=== PATIENT | female | born 1940 | race Caucasian/White ===

== ENCOUNTER 2020-02-02 15:39 | Outpatient (CLI) | payer MEDICARE, OTHER | END 2020-02-02 15:40 | disposition home or self-care (01) | LOC: COV 15:39 | PROVIDERS: ATTEND Ophthalmology | DX: Z01.812 Encounter for preprocedural laboratory examination (principal); H25.811 Combined forms of age-related cataract, right eye; Z20.828 Contact with and (suspected) exposure to other viral communicable diseases ==

== ENCOUNTER 2020-02-08 07:29 | Day surgery (SDC) | payer MEDICARE, OTHER ==
[~2020-02-08 07:29] MED LIST: KETOROLAC 0.45% OPHTH DROPS ONE; PHENYLEPHRINE 2.5% OPHTH 2 ML DROPS ONE; PROPARACAINE 0.5% OPHTH DROPS 15 ML ONE
[2020-02-08] MEDS ORDERED: LACTATED RINGERS 500 ML IV ONE ×2 (07:49→08:54)
--- NOTE | 2020-02-08 08:03 | ANESTHESIA ---
Pre-Anesthesia VS, & Labs - Diagnosis right eye senile combined cataract - Procedure right eye cataract extraction with IOL implant Vital Signs: Temp Pulse Resp BP Pulse Ox 36.5 C 71 18 155/61 H 96 02/08/20 07:40 02/08/20 07:40 02/08/20 07:40 02/08/20 07:40 02/08/20 07:40 Height: 5 ft Weight (kg): 77.6 kg Body Mass Index: 33.4 BMI Classification: Obese - NPO >8 hours - Is Patient ?: No - Lab Results Current Lab Results: Laboratory Tests 02/08/20 07:46: POC Whole Bld Glucose 96 Home Medications and Allergies Home Medications: Ambulatory Orders Cholecalciferol [Vitamin D3] 5,000 unit PO DAILY 02/07/20 Albuterol Sulfate [Proair Hfa Inhaler] 1 - 2 puffs INH Q4H PRN 01/11/18 Atorvastatin Calcium 40 mg PO DAILY 01/11/18 Fluticasone/Salmeterol [Advair 500-50 Diskus] 1 each IH DAILY 01/11/18 Levothyroxine Sodium 75 mcg PO DAILY 01/11/18 Lisinopril/Hydrochlorothiazide [Lisinopril-Hctz 20-25 mg Tab] 1 each PO DAILY 01/11/18 Metformin HCl 500 mg PO BID 01/11/18 Cholecalciferol [Vitamin D3] 5,000 unit PO DAILY 02/07/20 Allergies/Adverse Reactions: Allergies Allergy/AdvReac Type Severity Reaction Status Date / Time goldenrod Allergy Respiratory Uncoded 02/07/20 14:50 Anes History & Medical History - Anesthetic History Anesthesia Complications: reports: No previous complications - Medical History Cardiovascular: reports: Hypertension, High cholesterol Pulmonary: reports: Asthma (well controlled) Gastrointestinal: reports: Ulcers Urinary: reports: Incontinence, Nocturia, Frequency Neuro: reports: None Musculoskeletal: reports: None Endocrine/Autoimmune: reports: Type 2 diabetes (well controlled), HyPOthyroidism Blood Disorders: reports: None Skin: reports: Rosacea Smoking Status: Former smoker (Quit 30 years ago.) Psychosocial: reports: No issues indicated History of Cancer?: No - Surgical History General: Cholecystectomy, Appendectomy Eyes Ears Nose Throat (EENT): Tonsil/Adenoidectomy Exam General: Alert, Oriented x3, Cooperative, No acute distress Dental: Dentures full Upper, Partials Lower Mouth Openin Fingerbreadth Neck Mobility: Normal Mallampati classification: II Thyromental Distance: 4-6 cm Mental/Cognitive Status: Alert/Oriented X3, Normal for patient Plan Anesthesia Type: MAC Consent for Procedure(s) Verified and Reviewed: Yes Code Status: Attempt Resuscitation ASA classification: 2-Mild systemic disease Is this case an emergency?: No
[2020-02-08] MEDS ORDERED: MIDAZOLAM 2 MG/2 ML VIAL IVP ONE (08:30)
[2020-02-08] MEDS ORDERED: BRIMONIDINE 0.2% OPHTH DROPS 5 ML OPTH ONE (08:42)
[2020-02-08] MEDS ORDERED: EPINEPHrine 1 MG/ML AMP IR ONE (08:43)
[2020-02-08] MEDS ORDERED: TIMOLOL 0.5% OPHTH DROPS OPTH ONE (08:43)
[2020-02-08] MEDS ORDERED: CHONDR SULF/HYALURONATE SYRINGE IO ONE (08:43)
[2020-02-08] MEDS ORDERED: PROPARACAINE 0.5% OPHTH DROPS 15 ML EACHEYE ONE (08:44)
[2020-02-08] MEDS ORDERED: BSS/LIDOCAINE/EPINEPHRINE 1 ML SYRINGE IO ONE (08:44)
[2020-02-08] MEDS ORDERED: TRIAMCIN/MOXIFLOX OPHTHALMIC 0.6 ML VIAL IO ONE ×2 (08:44→13:56)
[2020-02-08] MEDS ORDERED: VANCOMYCIN OPHTHALMI 8MG/0.8ML 8 MG/0.8 ML SYRINGE IO ONE ×2 (08:45→13:56)
--- NOTE | 2020-02-08 09:03 | ANESTHESIA POST OP EVALUATION ---
Anesthesia Post Eval - Post Anesthesia Eval Vitals: Last Vital Signs Temp 36.5 C 02/08/20 07:40 Pulse 71 02/08/20 07:40 Resp 18 02/08/20 07:40 BP 155/61 H 02/08/20 07:40 Pulse Ox 96 02/08/20 07:40 CV Function Including HR & BP: positive: Stable Pain Control: positive: Satisfactory Nausea & Vomiting: positive: Negative Mental Status: positive: Baseline Respiratory Status: Airway Patent Hydration Status: Satisfactory Anesthesia Complications: positive: None
[2020-02-08 09:11] VITALS: BP 130/55
--- NOTE | 2020-02-08 12:08 | OPERATIVE REPORT ---
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 This was her first cataract surgery. 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 This was her first cataract surgery. PROCEDURE: Phacoemulsification with posterior chamber intraocular lens implant, right eye. SURGEON: Saeg Ponce MD ANESTHESIA: Monitored anesthesia care. COMPLICATIONS: None. 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 Best corrected visual acuity was 20/20, with glare to hand motion vision in the right eye. Indications for surgery are overall decrease in vision, difficulty reading, difficulty driving in low light or at night, difficulty driving at night because of headlights from other vehicles, and difficulty with glare or bright lights in any situation. She was consented at length concerning risks and benefits of cataract surgery, after which she expressed a desire to proceed with surgery. OPERATIVE PROCEDURE: The patient was taken to OR #3 and placed under monitored anesthesia care. A surgical timeout was conducted confirming correct patient, correct procedure, and correct surgical site. She was given topical anesthesia, and prepped and draped in the usual sterile fashion. The eye was entered at the 12, and 9 o'clock positions. Intracameral Shugarcaine was injected into the anterior chamber, followed by Viscoat. Because of the small pupil from pseudoexfoliation, a Malyugin ring was injected into the anterior chamber and engaged the pupil at 4 points to dilate the pupil. A continuous-tear curvilinear capsulorrhexis was performed. Nucleus was hydrodissected and phacoemulsified. The cortex was evacuated using automated infusion and aspiration. Provisc was injected in the capsular bag, and a 23.5 diopter intraocular lens inserted in the bag. The Malyugin ring was then disengaged from the pupillary margin and removed from the anterior chamber. Infusion and aspiration was used to evacuate the viscoelastic materials. The eye was inflated to physiologic pressure using balanced salt solution and found to be watertight. Approximately 0.25 mL of a mixture of triamcinolone and moxifloxacin was injected transsclerally into the vitreous in the inferotemporal quadrant. An additional 0.55 mL of a mixture of triamcinolone, moxifloxacin, and vancomycin was injected subconjunctivally in the superior quadrant for infection and inflammation prophylaxis. Wound integrity was checked with Weck- Mary sponges. Patient was taken from the Operating Room in good condition and given postoperative instructions. TD: 02/08/2020 09:08 WILIAN
[2020-02-08] MEDS ORDERED: BRIMONIDINE 0.2% OPHTH DROPS 5 ML ONE (13:56)
[2020-02-08] MEDS ORDERED: TIMOLOL 0.5% OPHTH DROPS ONE (13:56)
[2020-02-08] MEDS ORDERED: BSS/LIDOCAINE/EPINEPHRINE 1 ML SYRINGE ONE (13:56)
[2020-02-08] MEDS ORDERED: EPINEPHrine 1 MG/ML AMP ONE (13:59)
== END 2020-02-08 07:30 | disposition home or self-care (01) ==
LOC: SDS 07:29
PROVIDERS: ATTEND Ophthalmology
DX: E11.36 Type 2 diabetes mellitus with diabetic cataract (principal); H25.811 Combined forms of age-related cataract, right eye; Z79.84 Long term (current) use of oral hypoglycemic drugs; J45.909 Unspecified asthma, uncomplicated; I10 Essential (primary) hypertension; E03.9 Hypothyroidism, unspecified; Z87.891 Personal history of nicotine dependence; E66.9 Obesity, unspecified; Z68.33 Body mass index [BMI] 33.0-33.9, adult
CPT/HCPCS: 66982; A9270; J3490; J7120; V2632

== ENCOUNTER 2020-03-15 13:53 | Outpatient (CLI) | payer MEDICARE, OTHER | END 2020-03-15 13:54 | disposition home or self-care (01) | LOC: COV 13:53 | PROVIDERS: ATTEND Ophthalmology | DX: Z01.812 Encounter for preprocedural laboratory examination (principal); H25.812 Combined forms of age-related cataract, left eye; E11.9 Type 2 diabetes mellitus without complications; Z20.828 Contact with and (suspected) exposure to other viral communicable diseases ==

== ENCOUNTER 2020-03-21 06:31 | Day surgery (SDC) | payer MEDICARE, OTHER ==
[2020-03-21] MEDS ORDERED: LACTATED RINGERS 500 ML IV ONE (06:33)
[2020-03-21] MEDS ORDERED: CYCLOPENTOLATE 2% OPHTH DROPS 2 ML LEFTEYE ONE (07:00)
[2020-03-21] MEDS ORDERED: EPINEPHrine 1 MG/ML AMP ONE (07:06)
[2020-03-21] MEDS ORDERED: TRIAMCIN/MOXIFLOX OPHTHALMIC 0.6 ML VIAL IO ONE ×2 (07:06→07:31)
[2020-03-21] MEDS ORDERED: TIMOLOL 0.5% OPHTH DROPS ONE (07:07)
[2020-03-21] MEDS ORDERED: BRIMONIDINE 0.2% OPHTH DROPS 5 ML ONE (07:07)
[2020-03-21] MEDS ORDERED: BSS/LIDOCAINE/EPINEPHRINE 1 ML SYRINGE ONE (07:08)
[2020-03-21] MEDS ORDERED: VANCOMYCIN OPHTHALMI 8MG/0.8ML 8 MG/0.8 ML SYRINGE IO ONE ×2 (07:08→07:32)
[2020-03-21] MEDS ORDERED: MIDAZOLAM 2 MG/2 ML VIAL ONE (07:12)
[2020-03-21] MEDS ORDERED: fentaNYL 100 MCG/2 ML VIAL ONE (07:12)
--- NOTE | 2020-03-21 07:22 | ANESTHESIA ---
Pre-Anesthesia VS, & Labs - Diagnosis Left Cataract - Procedure Left IOL Vital Signs: Temp Pulse Resp BP Pulse Ox 36.1 C L 66 12 182/75 H 98 03/21/20 06:33 03/21/20 06:33 03/21/20 06:33 03/21/20 06:33 03/21/20 06:33 Height: 5 ft 2 in Weight (kg): 77.7 kg Body Mass Index: 31.3 BMI Classification: Obese - NPO >8 hours - Is Patient ?: No - Lab Results Current Lab Results: Laboratory Tests 03/21/20 06:54: POC Whole Bld Glucose 106 H Home Medications and Allergies Albuterol Sulfate [Proair Hfa Inhaler] 1 - 2 puffs INH Q4H PRN 01/11/18 Atorvastatin Calcium 40 mg PO DAILY 01/11/18 Fluticasone/Salmeterol [Advair 500-50 Diskus] 1 each IH DAILY 01/11/18 Levothyroxine Sodium 75 mcg PO DAILY 01/11/18 Lisinopril/Hydrochlorothiazide [Lisinopril-Hctz 20-25 mg Tab] 1 each PO DAILY 01/11/18 Metformin HCl 500 mg PO BID 01/11/18 Cholecalciferol [Vitamin D3] 5,000 unit PO DAILY 02/07/20 Allergies/Adverse Reactions: Allergies Allergy/AdvReac Type Severity Reaction Status Date / Time goldenrod Allergy Respiratory Uncoded 02/07/20 14:50 Anes History & Medical History - Anesthetic History Anesthesia Complications: reports: No previous complications Family history of Anesthesia Complications: Denies Family history of Malignant Hyperthermia: Denies - Medical History Cardiovascular: reports: Hypertension, High cholesterol Pulmonary: reports: Asthma (Took inhaler,says breathing is good) Gastrointestinal: reports: Cholelithiasis Urinary: reports: Incontinence Neuro: reports: None Musculoskeletal: reports: None Endocrine/Autoimmune: reports: Type 2 diabetes, HyPOthyroidism Blood Disorders: reports: None Skin: reports: Rosacea Smoking Status: Former smoker (Quit 30 years ago.) - Surgical History General: Cholecystectomy, Colonoscopy Eyes Ears Nose Throat (EENT): Cataracts Exam General: Alert, Oriented x3, Cooperative, No acute distress Dental: WNL Mouth Openin Fingerbreadth Neck Mobility: Reduced Mallampati classification: II Thyromental Distance: 4-6 cm Respiratory: Lungs clear Cardiovascular: Regular rate Plan Anesthesia Type: MAC Consent for Procedure(s) Verified and Reviewed: Yes Code Status: Attempt Resuscitation ASA classification: 2-Mild systemic disease Is this case an emergency?: No (Discussed anesthetic, consent signed)
[2020-03-21] MEDS ORDERED: BRIMONIDINE 0.2% OPHTH DROPS 5 ML OPTH ONE (07:28)
[2020-03-21] MEDS ORDERED: PROPARACAINE 0.5% OPHTH DROPS 15 ML EACHEYE ONE (07:29)
[2020-03-21] MEDS ORDERED: EPINEPHrine 1 MG/ML AMP IR ONE (07:29)
[2020-03-21] MEDS ORDERED: CHONDR SULF/HYALURONATE SYRINGE IO ONE (07:29)
[2020-03-21] MEDS ORDERED: TIMOLOL 0.5% OPHTH DROPS OPTH ONE (07:29)
[2020-03-21] MEDS ORDERED: BSS/LIDOCAINE/EPINEPHRINE 1 ML SYRINGE IO ONE (07:30)
--- NOTE | 2020-03-21 08:49 | ANESTHESIA POST OP EVALUATION ---
Anesthesia Post Eval - Post Anesthesia Eval Vitals: Last Vital Signs Temp 36.1 C L 03/21/20 06:33 Pulse 66 03/21/20 06:33 Resp 12 03/21/20 06:33 BP 182/75 H 03/21/20 06:33 Pulse Ox 98 03/21/20 06:33 CV Function Including HR & BP: positive: Stable Pain Control: positive: Satisfactory Nausea & Vomiting: positive: Negative Mental Status: positive: Baseline Respiratory Status: Airway Patent Hydration Status: Satisfactory Anesthesia Complications: positive: None
--- NOTE | 2020-03-21 09:06 | OPERATIVE REPORT ---
DATE OF SERVICE: 03/21/2020 Physician: Sage Ponce MD PREOPERATIVE DIAGNOSIS: Visually significant cataract, left eye. Cataract surgery was performed on the right eye on 02/08/2020. POSTOPERATIVE DIAGNOSIS: Visually significant cataract, left eye. Cataract surgery was performed on the right eye on 02/08/2020. PROCEDURE: Phacoemulsification with posterior chamber intraocular lens implant, left eye. SURGEON: Sage Ponce MD ANESTHESIA: Monitored anesthesia care. COMPLICATIONS: None. OPERATIVE INDICATIONS: This is a 79-year-old woman with progressive vision loss in the left eye due to 3-4+ nuclear sclerotic cataract and also 2+ pseudoexfoliation cataract that was noted during surge ry, but apparently had not been noted prior to surgery. However, the right eye had pseudoexfoliation cataract. Best corrected visual acuity was 20/20, with glare to 2500 in the left eye. Indications for surgery are difficulty reading, difficulty driving in low light or at night, difficulty driving a t night because of headlights from other vehicles, and difficulty with glare or bright lights in any situation. She was consented at length concerning risks and benefits of cataract surgery, after whic h she expressed a desire to proceed with surgery. OPERATIVE PROCEDURE: The patient was taken to OR #3 and placed under monitored anesthesia care. A s urgical timeout was conducted confirming correct patient, correct procedure, and correct surgical sit e. She was given topical anesthesia, and prepped and draped in the usual sterile fashion. The eye w as entered at the 6 and 3 o'clock positions. Intracameral Shugarcaine was injected into the anterior chamber, followed by Viscoat. A continuous-tear curvilinear capsulorrhexis was performed. The nucl eus was hydrodissected and phacoemulsified. The cortex was evacuated using automated infusion and as piration. Provisc was injected in the capsular bag, and a 24.0 diopter intraocular lens was inserted into the bag. Infusion and aspiration was used to evacuate the viscoelastic materials. The eye was inflated to physiologic pressure using balanced salt solution and found to be watertight. Approxima tely 0.25 mL of a mixture of triamcinolone and moxifloxacin was injected transsclerally into the vitr eous in the inferotemporal quadrant. An additional 0.55 mL of a mixture of triamcinolone, moxifloxac in, and vancomycin was injected subconjunctivally in the superior quadrant for infection and inflamma tion prophylaxis. Wound integrity was checked with Weck-Mary sponges. Patient was taken from the ope rating room in good condition and given postoperative instructions. TD: 03/21/2020 07:54
[2020-03-21 09:44] VITALS: BP 141/51
== END 2020-03-21 06:32 | disposition home or self-care (01) ==
LOC: SDS 06:31
PROVIDERS: ATTEND Ophthalmology
DX: E11.36 Type 2 diabetes mellitus with diabetic cataract (principal); H25.812 Combined forms of age-related cataract, left eye; Z79.84 Long term (current) use of oral hypoglycemic drugs; I10 Essential (primary) hypertension; E03.9 Hypothyroidism, unspecified; J45.909 Unspecified asthma, uncomplicated; Z98.41 Cataract extraction status, right eye; E66.9 Obesity, unspecified; Z68.31 Body mass index [BMI] 31.0-31.9, adult; Z87.891 Personal history of nicotine dependence
CPT/HCPCS: 66984; A9270; J3490; J7120; V2632

== ENCOUNTER 2021-06-27 12:44 | Outpatient (CLI) | payer MEDICARE, OTHER ==
--- NOTE | 2021-06-27 14:13 | DEXA Report ---
PROCEDURE: Dexa Spine and/or Hip INDICATIONS: OSTEOPENIA TECHNIQUE: Dual energy x-ray absorptiometry (DXA) was performed on a [employer] System. Regions measur ed are the AP Spine, femoral neck, and if needed forearm. COMPARISON: None. FINDINGS: Lumbar Spine: Bone Mineral Density 1.417 g/cm/cm,T score 2.0, normal bone mineral density Left Hip: Bone Mineral Density 0.802 g/cm/cm,T score -1.6, osteopenia Left Femoral Neck: Bone Mineral Density 0.761 g/cm/cm, T score -2.0, osteopenia (T score greater or equal to -1.0: NORMAL) (T score from -1.1 to -2.4: OSTEOPENIA) (T score less than or equal to -2.5 to: OSTEOPOROSIS) Impression: Osteopenia. Patient is at increased risk for fracture. Patients with diagnosis of osteoporosis or osteopenia should have regular bone mineral density assess ment. For those eligible for Medicare, routine testing is allowed once every 2 years. Testing frequ ency can be increased for patients who have rapidly progressing disease or for those who are receivin g medical therapy to restore bone mass. Reviewed by: Poncho Kessler MD on 06/27/2021 2:12 PM PDT Approved by: Poncho Kessler MD on 06/27/2021 2:12 PM PDT Station ID: [id number]
== END 2021-06-27 12:45 | disposition home or self-care (01) ==
LOC: DI 12:44
PROVIDERS: ATTEND Internal Medicine
DX: M85.89 Other specified disorders of bone density and structure, multiple sites (principal); Z78.0 Asymptomatic menopausal state

== ENCOUNTER 2021-09-12 10:36 | Outpatient (CLI) | payer MEDICARE, OTHER ==
--- NOTE | 2021-09-12 14:07 | Ultrasound Report ---
PROCEDURE: Abdomen Limited INDICATIONS: ELEVATED ALKALINE PHOSPHATASE TECHNIQUE: Real-time focused scanning was performed of the abdomen, with image documentation. COMPARISON: None. FINDINGS: Liver is mildly enlarged measures 18.1 cm in length. Liver parenchyma is normal in echotexture. Circu lars solid appearing hypoechoic structure is noted in right lobe of liver and measures 1.1 x 1.1 x 1. 0 cm in size. No internal vascularity seen. Normal hepatopedal flow is seen in main portal vein. Gallbladder is surgically absent. There is no intrahepatic biliary ductal dilatation. Common bile the measures up to 6.9 mm in diameter and is within normal limits. Visualized portion of the pancreas shows no gross abnormality. Right kidney measures 10.9 cm in length and 1.2 cm in cortical thickness. No hydronephrosis or solid appearing renal lesion. Simple cyst in upper pole of right kidney is seen measures 7.3 x 6.6 x 8.1 cm in size. IMPRESSION: 1. Possible hemangioma in right hepatic lobe as above. No internal vascularity is seen. Mild hepatom egaly. Normal liver parenchymal echotexture. 2. Prior cholecystectomy. No biliary ductal dilatation. 3. Simple cyst in right kidney as above. No hydronephrosis. No solid appearing renal lesion. Reviewed by: Reid Magallanes MD on 09/12/2021 2:05 PM PDT Approved by: Reid Magallanes MD on 09/12/2021 2:05 PM PDT Station ID: [id number]
== END 2021-09-12 10:37 | disposition home or self-care (01) ==
LOC: DI 10:36
PROVIDERS: ATTEND Family Medicine
DX: R74.8 Abnormal levels of other serum enzymes (principal); R16.0 Hepatomegaly, not elsewhere classified; N28.1 Cyst of kidney, acquired; Z90.49 Acquired absence of other specified parts of digestive tract